=== PATIENT | female | born 1985 | race Caucasian/White ===

== ENCOUNTER 2018-10-17 17:51 | Emergency (ER) | payer SELFPAY, MEDICAID | END 2018-10-17 19:05 | disposition left against medical advice (07) | LOC: FTE 17:51 | DX: Z53.21 Procedure and treatment not carried out due to patient leaving prior to being seen by health care provider (principal) ==

== ENCOUNTER 2018-12-23 16:30 | Emergency (ER) | payer MEDICAID ==
[2018-12-23 17:07] LABS: ADD MAN DIFF? NO
[2018-12-23 17:13] LABS: WHITE BLOOD COUNT 9.4 10^3/ul (4.8-10.8)
[2018-12-23 17:13] LABS: BASOPHILS % 0.3 % (0.0-2.0); EOSINOPHILS # 0.1 10^3/ul (0.0-0.5); EOSINOPHILS % 1.1 % (0.0-7.0); HEMATOCRIT 31.7 % (37.0-47.0); HEMOGLOBIN 10.3 g/dl (12.0-16.0); LYMPHOCYTES # 2.8 10^3/ul (0.8-2.9); LYMPHOCYTES % 29.6 % (15.0-51.0); MEAN CORPUSCULAR HGB CONC 32.5 g/dl (32.0-37.0); MEAN CORPUSCULAR VOLUME 92.4 fl (82.0-101.0); MEAN PLATELET VOLUME 10.3 fl (7.4-10.4); MONOCYTE # 0.6 10^3/ul (0.3-0.9); MONOCYTES % 6.3 % (0.0-11.0); NEUTROPHIL # 5.8 10^3/ul (1.6-7.5); NEUTROPHILS % 62.2 % (39.0-77.0); PLATELET COUNT 195 10^3/UL (140-415); RED BLOOD COUNT 3.43 10^6/ul (4.20-5.40)
== END 2018-12-23 19:09 | disposition home or self-care (01) ==
LOC: FTE 16:30
DX: O20.0 Threatened abortion (principal); Z3A.17 17 weeks gestation of pregnancy
CPT/HCPCS: 36415; 76805; 84702; 85025; 99284-25

== ENCOUNTER 2019-02-28 22:16 | Outpatient (CLI) | payer MEDICAID ==
[2019-02-28 23:35] LABS: ADD MAN DIFF? NO
[2019-02-28 23:37] LABS: BASOPHILS % 0.3 % (0.0-2.0); EOSINOPHILS % 0.4 % (0.0-7.0); HEMATOCRIT 29.2 % (37.0-47.0); HEMOGLOBIN 9.4 g/dl (12.0-16.0); LYMPHOCYTES # 1.7 10^3/ul (0.8-2.9); LYMPHOCYTES % 17.8 % (15.0-51.0); MEAN CORPUSCULAR HEMOGLOBIN 29.1 pg (29.0-33.0); MEAN CORPUSCULAR HGB CONC 32.2 g/dl (32.0-37.0); MEAN CORPUSCULAR VOLUME 90.4 fl (82.0-101.0); MEAN PLATELET VOLUME 10.1 fl (7.4-10.4); MONOCYTE # 0.6 10^3/ul (0.3-0.9); MONOCYTES % 6.3 % (0.0-11.0); PLATELET COUNT 193 10^3/UL (140-415); RED BLOOD COUNT 3.23 10^6/ul (4.20-5.40); RED CELL DISTRIBUTION WIDTH 13.1 % (11.5-14.5)
[2019-02-28 23:37] LABS: WHITE BLOOD COUNT 9.4 10^3/ul (4.8-10.8)
[2019-03-01 01:27] LABS: ADD UMIC NO; UR ASCORBIC ACID NEGATIVE (NEGATIVE); UR BILIRUBIN (Dip) NEGATIVE (NEGATIVE); UR BLOOD (Dip) NEGATIVE (NEGATIVE); UR CLARITY CLEAR (CLEAR); UR COLOR STRAW (YELLOW); UR GLUCOSE (Dip) NEGATIVE (NEGATIVE); UR KETONES (Dip) NEGATIVE (NEGATIVE); UR LEUKOCYTE ESTERASE (Dip) NEGATIVE Leu/ul (NEGATIVE); UR NITRITE (Dip) NEGATIVE (NEGATIVE); UR SPECIFIC GRAVITY (Dip) 1.005 (1.003-1.030); UR TOTAL PROTEIN (Dip) NEGATIVE (NEGATIVE); UR UROBILINOGEN (Dip) NEGATIVE (NEGATIVE)
== END 2019-03-01 02:09 | disposition home or self-care (01) ==
LOC: OBT 22:16 → L-D 22:16
DX: O26.892 Other specified pregnancy related conditions, second trimester (principal); Z3A.26 26 weeks gestation of pregnancy; R10.2 Pelvic and perineal pain
CPT/HCPCS: 76815; 76817; 81003; 85025; 86850; 86900; 86901

== ENCOUNTER 2019-05-27 16:42 | Inpatient (IN) | payer MEDICAID ==
[2019-05-27] MEDS ORDERED: METHYLERGONOVINE 0.2 MG INJ IM (18:00)
[2019-05-27] MEDS ORDERED: CARBOPROST 250 MCG INJ IM (18:00)
[2019-05-27] MEDS ORDERED: OXYTOCIN 30 UNITS/LR 500 ML IV ×2 (18:00)
[2019-05-27] MEDS ORDERED: MISOPROSTOL 200 MCG TAB PR (18:00)
[2019-05-27] MEDS ORDERED: CEFAZOLIN 2 GM/50 ML (PMX) 50 ML IVPB (18:00)
[2019-05-27] MEDS ORDERED: CITRIC ACID/NA CITRATE 30 ML CUP (18:01)
[2019-05-27] MEDS ORDERED: METOCLOPRAMIDE 10 MG INJ (18:02)
[2019-05-27] MEDS ORDERED: ONDANSETRON 4 MG INJ (18:02)
[2019-05-27] MEDS ORDERED: FAMOTIDINE 20 MG INJ (18:02)
[2019-05-27] MEDS: ONDANSETRON 4 MG INJ IV (18:13)
[2019-05-27] MEDS: METOCLOPRAMIDE 10 MG INJ IV (18:14)
[2019-05-27] MEDS: FAMOTIDINE 20 MG INJ IV (18:14)
[2019-05-27] MEDS: CITRIC ACID/NA CITRATE 30 ML CUP PO (18:14)
[2019-05-27 18:19] LABS: ADD MAN DIFF? NO
[2019-05-27 18:25] LABS: WHITE BLOOD COUNT 8.4 10^3/ul (4.8-10.8)
[2019-05-27 18:25] LABS: BASOPHILS % 0.4 % (0.0-2.0); EOSINOPHILS % 0.5 % (0.0-7.0); HEMATOCRIT 27.3 % (37.0-47.0); HEMOGLOBIN 8.4 g/dl (12.0-16.0); LYMPHOCYTES # 1.8 10^3/ul (0.8-2.9); LYMPHOCYTES % 21.8 % (15.0-51.0); MEAN CORPUSCULAR HGB CONC 30.8 g/dl (32.0-37.0); MEAN CORPUSCULAR VOLUME 84.5 fl (82.0-101.0); MEAN PLATELET VOLUME 9.9 fl (7.4-10.4); MONOCYTE # 0.7 10^3/ul (0.3-0.9); MONOCYTES % 7.7 % (0.0-11.0); NEUTROPHIL # 5.8 10^3/ul (1.6-7.5); NEUTROPHILS % 69.1 % (39.0-77.0); PLATELET COUNT 179 10^3/UL (140-415); RED BLOOD COUNT 3.23 10^6/ul (4.20-5.40); RED CELL DISTRIBUTION WIDTH 14.9 % (11.5-14.5)
[2019-05-27] MEDS: AZITHROMYCIN 500MG/NS (PMX) 250 ML IVPB (18:30)
[2019-05-27] MEDS: LACTATED RINGER'S 1,000 ML IV (18:30)
[2019-05-27 18:40] LABS: INR 0.94; PROTIME 12.7 Sec (11.9-14.9)
[2019-05-27 18:41] LABS: PARTIAL THROMBOPLASTIN TIME 27.3 Sec (23.0-35.0)
[2019-05-27] MEDS ORDERED: ALBUMIN HUMAN 5% 250 ML INJ (19:00)
[2019-05-27] MEDS ORDERED: PHENYLephrine (100 MCG/ML) 10ML SYG (19:00)
[2019-05-27] MEDS ORDERED: morphine SULFATE/PF (10 MG/10 ML) INJ (19:05)
[2019-05-27 19:11] LABS: HEPATITIS B SURFACE ANTIGEN NEGATIVE (NEGATIVE)
[2019-05-27] MEDS: CARBOPROST 250 MCG INJ IM (19:43)
[2019-05-27] MEDS: TRANEXAMIC ACID 1GM/100ML(PMX) 100 ML IV (19:43)
[2019-05-27] MEDS ORDERED: VASOPRESSIN 20 UNITS INJ (20:00)
[2019-05-27] MEDS ORDERED: FENTAnyl 50 MCG/ML VIAL ×7 (20:16→21:38)
[2019-05-27] MEDS: MISOPROSTOL 50 MCG CAPSULE PO (21:00)
[2019-05-27 21:06] LABS: IMMEDIATE SPIN CROSSMATCH 1 8
[2019-05-27 21:12] LABS: HEMOGLOBIN 8.4 g/dl (12.0-16.0)
[2019-05-27] MEDS ORDERED: FUROSEMIDE 20 MG INJ (21:12)
[2019-05-27 21:18] LABS: TYPE AND SCREEN 1
[2019-05-27] MEDS: METHYLENE BLUE 50 MG/10 ML AMPUL IV (22:00)
[2019-05-28] MEDS: LACTATED RINGER'S 1,000 ML IV (00:37)
[2019-05-28 00:42] LABS: ADD MAN DIFF? NO
[2019-05-28 00:43] LABS: BASOPHILS % 0.2 % (0.0-2.0); HEMATOCRIT 33.5 % (37.0-47.0); HEMOGLOBIN 11.1 g/dl (12.0-16.0); LYMPHOCYTES % 6.2 % (15.0-51.0); MEAN CORPUSCULAR HEMOGLOBIN 28.8 pg (29.0-33.0); MEAN CORPUSCULAR HGB CONC 33.1 g/dl (32.0-37.0); MEAN PLATELET VOLUME 10.5 fl (7.4-10.4); MONOCYTE # 1.2 10^3/ul (0.3-0.9); MONOCYTES % 7.4 % (0.0-11.0); NEUTROPHIL # 14.3 10^3/ul (1.6-7.5); NEUTROPHILS % 85.8 % (39.0-77.0); PLATELET COUNT 117 10^3/UL (140-415); RED BLOOD COUNT 3.85 10^6/ul (4.20-5.40); RED CELL DISTRIBUTION WIDTH 14.5 % (11.5-14.5)
[2019-05-28 00:43] LABS: WHITE BLOOD COUNT 16.6 10^3/ul (4.8-10.8)
[2019-05-28] MEDS: ACETAMINOPHEN 325 MG TAB PO ×4 (00:44→18:37)
[2019-05-28 05:25] LABS: ADD MAN DIFF? NO
[2019-05-28 05:34] LABS: WHITE BLOOD COUNT 16.3 10^3/ul (4.8-10.8)
[2019-05-28 05:34] LABS: BASOPHILS % 0.2 % (0.0-2.0); HEMATOCRIT 29.3 % (37.0-47.0); HEMOGLOBIN 9.8 g/dl (12.0-16.0); LYMPHOCYTES % 12.1 % (15.0-51.0); MEAN CORPUSCULAR HEMOGLOBIN 28.9 pg (29.0-33.0); MEAN CORPUSCULAR HGB CONC 33.4 g/dl (32.0-37.0); MEAN CORPUSCULAR VOLUME 86.4 fl (82.0-101.0); MEAN PLATELET VOLUME 10.5 fl (7.4-10.4); MONOCYTE # 1.3 10^3/ul (0.3-0.9); MONOCYTES % 7.7 % (0.0-11.0); NEUTROPHIL # 12.9 10^3/ul (1.6-7.5); NEUTROPHILS % 79.3 % (39.0-77.0); PLATELET COUNT 108 10^3/UL (140-415); RED BLOOD COUNT 3.39 10^6/ul (4.20-5.40); RED CELL DISTRIBUTION WIDTH 14.7 % (11.5-14.5)
[2019-05-28] MEDS: MISOPROSTOL 200 MCG TAB PO (05:52)
[2019-05-28] MEDS: METOPROLOL 5 MG INJ IV (06:17)
[2019-05-28] MEDS ORDERED: METOPROLOL 5 MG INJ (06:21)
[2019-05-28] MEDS: CEFAZOLIN 2 GM/50 ML (PMX) 50 ML IVPB ×3 (06:36→21:00)
[2019-05-28 08:18] LABS: LACTIC ACID 4.2 mmol/L (0.5-2.0)
[2019-05-28] MEDS: SOD CHLORIDE 0.9% 1,000 ML IV ×2 (11:33→20:00)
[2019-05-28 12:27] LABS: ADD MAN DIFF? NO
[2019-05-28 12:34] LABS: BASOPHILS % 0.2 % (0.0-2.0); EOSINOPHILS % 0.1 % (0.0-7.0); HEMATOCRIT 25.5 % (37.0-47.0); HEMOGLOBIN 8.8 g/dl (12.0-16.0); LYMPHOCYTES # 2.6 10^3/ul (0.8-2.9); LYMPHOCYTES % 18.3 % (15.0-51.0); MEAN CORPUSCULAR HGB CONC 34.5 g/dl (32.0-37.0); MEAN CORPUSCULAR VOLUME 84.2 fl (82.0-101.0); MEAN PLATELET VOLUME 10.6 fl (7.4-10.4); MONOCYTE # 1.3 10^3/ul (0.3-0.9); MONOCYTES % 9.1 % (0.0-11.0); NEUTROPHILS % 71.7 % (39.0-77.0); PLATELET COUNT 114 10^3/UL (140-415); RED BLOOD COUNT 3.03 10^6/ul (4.20-5.40); RED CELL DISTRIBUTION WIDTH 14.7 % (11.5-14.5)
[2019-05-28 16:07] LABS: RAPID PLASMA REAGIN NONREACTIVE (NR)
[2019-05-28 19:41] LABS: LACTIC ACID 2.1 mmol/L (0.5-2.0)
[2019-05-28 21:03] LABS: ADD MAN DIFF? NO
[2019-05-28 21:08] LABS: WHITE BLOOD COUNT 14.3 10^3/ul (4.8-10.8)
[2019-05-28 21:08] LABS: BASOPHILS % 0.2 % (0.0-2.0); EOSINOPHILS % 0.1 % (0.0-7.0); HEMOGLOBIN 7.9 g/dl (12.0-16.0); LYMPHOCYTES # 2.2 10^3/ul (0.8-2.9); LYMPHOCYTES % 15.1 % (15.0-51.0); MEAN CORPUSCULAR HEMOGLOBIN 29.2 pg (29.0-33.0); MEAN CORPUSCULAR HGB CONC 34.3 g/dl (32.0-37.0); MEAN CORPUSCULAR VOLUME 84.9 fl (82.0-101.0); MEAN PLATELET VOLUME 10.6 fl (7.4-10.4); MONOCYTE # 1.2 10^3/ul (0.3-0.9); MONOCYTES % 8.1 % (0.0-11.0); NEUTROPHIL # 10.8 10^3/ul (1.6-7.5); NEUTROPHILS % 75.9 % (39.0-77.0); PLATELET COUNT 111 10^3/UL (140-415); RED BLOOD COUNT 2.71 10^6/ul (4.20-5.40); RED CELL DISTRIBUTION WIDTH 14.9 % (11.5-14.5)
[2019-05-28] MEDS: OXYCODONE/ACETAMINOPHEN (5/325) TAB PO (22:30)
[2019-05-29] MEDS: OXYCODONE/ACETAMINOPHEN (5/325) TAB PO ×5 (03:41→23:18)
[2019-05-29 04:15] LABS: ADD MAN DIFF? NO
[2019-05-29 04:19] LABS: WHITE BLOOD COUNT 13.8 10^3/ul (4.8-10.8)
[2019-05-29 04:19] LABS: BASOPHILS % 0.3 % (0.0-2.0); EOSINOPHILS % 0.1 % (0.0-7.0); HEMATOCRIT 21.8 % (37.0-47.0); HEMOGLOBIN 7.3 g/dl (12.0-16.0); LYMPHOCYTES # 2.8 10^3/ul (0.8-2.9); MEAN CORPUSCULAR HEMOGLOBIN 28.9 pg (29.0-33.0); MEAN CORPUSCULAR HGB CONC 33.5 g/dl (32.0-37.0); MEAN CORPUSCULAR VOLUME 86.2 fl (82.0-101.0); MEAN PLATELET VOLUME 10.2 fl (7.4-10.4); MONOCYTE # 1.2 10^3/ul (0.3-0.9); MONOCYTES % 8.6 % (0.0-11.0); NEUTROPHIL # 9.7 10^3/ul (1.6-7.5); NEUTROPHILS % 70.5 % (39.0-77.0); NUCLEATED RED BLOOD CELLS% 0.1 /100WBC (0.0-0.0); PLATELET COUNT 111 10^3/UL (140-415); RED BLOOD COUNT 2.53 10^6/ul (4.20-5.40); RED CELL DISTRIBUTION WIDTH 15.1 % (11.5-14.5)
[2019-05-29 04:38] LABS: ALANINE AMINOTRANSFERASE 29 IU/L (13-69); ALBUMIN 2.2 g/dl (3.3-4.9); ALBUMIN/GLOBULIN RATIO 0.88; ALKALINE PHOSPHATASE 56 IU/L (42-121); ANION GAP 4 (5-13); ASPARTATE AMINO TRANSFERASE 20 IU/L (15-46); BILIRUBIN,INDIRECT 0.4 mg/dl (0-1.1); BILIRUBIN,TOTAL 0.4 mg/dl (0.2-1.3); BLOOD UREA NITROGEN 5 mg/dl (7-20); CALCIUM 7.7 mg/dl (8.4-10.2); CARBON DIOXIDE 24 mmol/L (21-31); CHLORIDE 107 mmol/L (97-110); CHOL/HDL RATIO 4.3 RATIO; CHOLESTEROL 109 mg/dl (100-200); CREATININE 0.48 mg/dl (0.44-1.00); Estimated GFR > 60 mL/min (>60); GLUCOSE 95 mg/dl (70-220); HDL CHOLESTEROL 25 mg/dl (34-82); LDL CHOLESTEROL,CALCULATED 43 mg/dl; MAGNESIUM 1.6 mg/dl (1.7-2.5); POTASSIUM 3.8 mmol/L (3.5-5.1); SODIUM 135 mmol/L (135-144); TOTAL PROTEIN 4.7 g/dl (6.1-8.1); TRIGLYCERIDES 207 mg/dl (0-149)
[2019-05-29 04:44] LABS: HEMOGLOBIN A1C 5.4 % (0-5.9)
[2019-05-29 05:18] LABS: IMMEDIATE SPIN CROSSMATCH 1
[2019-05-29] MEDS: SOD CHLORIDE 0.9% 1,000 ML IV (05:36)
[2019-05-29] MEDS: ACETAMINOPHEN 325 MG TAB PO ×2 (06:04→11:07)
[2019-05-29 09:16] LABS: IRON 32 ug/dl (35-150)
[2019-05-29 09:25] LABS: % IRON SATURATION 11 % SAT (22-52); TOTAL IRON BINDING CAPACITY 297 ug/dl (241-421)
[2019-05-29 09:52] LABS: FERRITIN 37.3 ng/ml (6.2-137.0)
[2019-05-29] MEDS: MAGNESIUM SULFATE 2 GM/50 ML 50 ML IVPB (10:10)
[2019-05-29 10:41] LABS: ADD MAN DIFF? NO
[2019-05-29 10:44] LABS: WHITE BLOOD COUNT 13.7 10^3/ul (4.8-10.8)
[2019-05-29 10:44] LABS: BASOPHILS % 0.3 % (0.0-2.0); EOSINOPHILS % 0.2 % (0.0-7.0); HEMATOCRIT 23.2 % (37.0-47.0); HEMOGLOBIN 7.8 g/dl (12.0-16.0); LYMPHOCYTES # 2.5 10^3/ul (0.8-2.9); LYMPHOCYTES % 17.9 % (15.0-51.0); MEAN CORPUSCULAR HEMOGLOBIN 29.2 pg (29.0-33.0); MEAN CORPUSCULAR HGB CONC 33.6 g/dl (32.0-37.0); MEAN CORPUSCULAR VOLUME 86.9 fl (82.0-101.0); MEAN PLATELET VOLUME 10.4 fl (7.4-10.4); MONOCYTE # 1.1 10^3/ul (0.3-0.9); MONOCYTES % 8.3 % (0.0-11.0); NEUTROPHILS % 72.8 % (39.0-77.0); PLATELET COUNT 104 10^3/UL (140-415); RED BLOOD COUNT 2.67 10^6/ul (4.20-5.40); RED CELL DISTRIBUTION WIDTH 14.7 % (11.5-14.5)
[2019-05-29] MEDS: SOD FERRIC GLUC COMPLX 125 MG in SOD CHLORIDE 0.9% 100 ML IVPB (11:07)
[2019-05-29 16:15] LABS: ADD MAN DIFF? NO
[2019-05-29 16:16] LABS: WHITE BLOOD COUNT 14.4 10^3/ul (4.8-10.8)
[2019-05-29 16:16] LABS: ABNORMAL IP MESSAGE 1; BASOPHIL # 0.1 10^3/ul (0.0-0.1); BASOPHILS % 0.3 % (0.0-2.0); EOSINOPHILS % 0.2 % (0.0-7.0); HEMATOCRIT 24.3 % (37.0-47.0); HEMOGLOBIN 8.1 g/dl (12.0-16.0); LYMPHOCYTES # 1.9 10^3/ul (0.8-2.9); LYMPHOCYTES % 13.2 % (15.0-51.0); MEAN CORPUSCULAR HEMOGLOBIN 29.3 pg (29.0-33.0); MEAN CORPUSCULAR HGB CONC 33.3 g/dl (32.0-37.0); MEAN PLATELET VOLUME 10.8 fl (7.4-10.4); MONOCYTE # 1.1 10^3/ul (0.3-0.9); MONOCYTES % 7.5 % (0.0-11.0); NEUTROPHIL # 11.2 10^3/ul (1.6-7.5); PLATELET COUNT 99 10^3/UL (140-415); RED BLOOD COUNT 2.76 10^6/ul (4.20-5.40); RED CELL DISTRIBUTION WIDTH 14.9 % (11.5-14.5)
[2019-05-29 16:24] LABS: POSITIVE DIFF @See below
[2019-05-30] MEDS: OXYCODONE/ACETAMINOPHEN (5/325) TAB PO ×4 (03:45→21:28)
[2019-05-30 06:44] LABS: MAGNESIUM 1.9 mg/dl (1.7-2.5)
[2019-05-30 06:46] LABS: ALANINE AMINOTRANSFERASE 25 IU/L (13-69); ALBUMIN 2.2 g/dl (3.3-4.9); ALBUMIN/GLOBULIN RATIO 0.95; ALKALINE PHOSPHATASE 75 IU/L (42-121); ANION GAP 4 (5-13); ASPARTATE AMINO TRANSFERASE 17 IU/L (15-46); BILIRUBIN,INDIRECT 0.3 mg/dl (0-1.1); BILIRUBIN,TOTAL 0.3 mg/dl (0.2-1.3); BLOOD UREA NITROGEN 3 mg/dl (7-20); CALCIUM 7.6 mg/dl (8.4-10.2); CARBON DIOXIDE 26 mmol/L (21-31); CHLORIDE 108 mmol/L (97-110); CREATININE 0.41 mg/dl (0.44-1.00); Estimated GFR > 60 mL/min (>60); GLUCOSE 81 mg/dl (70-220); POTASSIUM 3.4 mmol/L (3.5-5.1); SODIUM 138 mmol/L (135-144); TOTAL PROTEIN 4.5 g/dl (6.1-8.1)
[2019-05-30] MEDS: POTASSIUM CHLORIDE (SR) 20 MEQ TAB PO (14:23)
[2019-05-31] MEDS: OXYCODONE/ACETAMINOPHEN (5/325) TAB PO ×2 (03:30→09:21)
[2019-05-31 07:31] LABS: ALANINE AMINOTRANSFERASE 26 IU/L (13-69); ALBUMIN 2.6 g/dl (3.3-4.9); ALBUMIN/GLOBULIN RATIO 0.86; ALKALINE PHOSPHATASE 77 IU/L (42-121); ANION GAP 6 (5-13); ASPARTATE AMINO TRANSFERASE 26 IU/L (15-46); BILIRUBIN,INDIRECT 0.4 mg/dl (0-1.1); BILIRUBIN,TOTAL 0.4 mg/dl (0.2-1.3); BLOOD UREA NITROGEN 4 mg/dl (7-20); CALCIUM 8.3 mg/dl (8.4-10.2); CARBON DIOXIDE 26 mmol/L (21-31); CHLORIDE 105 mmol/L (97-110); Estimated GFR > 60 mL/min (>60); GLUCOSE 79 mg/dl (70-220); POTASSIUM 3.7 mmol/L (3.5-5.1); SODIUM 137 mmol/L (135-144); TOTAL PROTEIN 5.6 g/dl (6.1-8.1)
== END 2019-05-31 15:15 | disposition home or self-care (01) | DRG 783 ==
LOC: OBT 16:42 → 6WM 05-29 14:45 → PP1 05-30 16:13 → L-D 16:42 → OBT 17:35 → L-D 17:35 → ICU 22:22
PROVIDERS: Obstetrics & Gynecology
PROC: 10D00Z1 Extraction of Products of Conception, Low, Open Approach (ICD-10-PCS; principal; 2019-05-27 19:00)
PROC: 0UB70ZZ Excision of Bilateral Fallopian Tubes, Open Approach (ICD-10-PCS; 2019-05-27 19:00)
PROC: 0UT90ZZ Resection of Uterus, Open Approach (ICD-10-PCS; 2019-05-27 19:00)
PROC: 30233N1 Transfusion of Nonautologous Red Blood Cells into Peripheral Vein, Percutaneous Approach (ICD-10-PCS; 2019-05-27 19:00)
PROC: 30233K1 Transfusion of Nonautologous Frozen Plasma into Peripheral Vein, Percutaneous Approach (ICD-10-PCS; 2019-05-27 19:00)
PROC: 30233R1 Transfusion of Nonautologous Platelets into Peripheral Vein, Percutaneous Approach (ICD-10-PCS; 2019-05-27 19:00)
DX: O42.92 Full-term premature rupture of membranes, unspecified as to length of time between rupture and onset of labor (principal); T81.19XA Other postprocedural shock, initial encounter; O72.0 Third-stage hemorrhage; O72.1 Other immediate postpartum hemorrhage; D62 Acute posthemorrhagic anemia; E87.2 Acidosis; O36.8130 Decreased fetal movements, third trimester, not applicable or unspecified; O43.213 Placenta accreta, third trimester; O34.211 Maternal care for low transverse scar from previous cesarean delivery; O99.214 Obesity complicating childbirth; E66.9 Obesity, unspecified; O99.02 Anemia complicating childbirth; D50.9 Iron deficiency anemia, unspecified; Y83.8 Other surgical procedures as the cause of abnormal reaction of the patient, or of later complication, without mention of misadventure at the time of the procedure; Z3A.38 38 weeks gestation of pregnancy; Z37.0 Single live birth; Z30.2 Encounter for sterilization
CPT/HCPCS: 36430; 71045; 80053; 80061; 82306; 82728; 83036; 83540; 83605; 83735; 84443; 85014; 85018; 85025; 85610; 85730; 86592; 86644; 86850; 86900; 86901; 86920; 86945; 87081; 87340; 88302; 88307; 99464